=== PATIENT | male | born 2000 | race Caucasian/White ===

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

== ENCOUNTER 2021-08-03 19:57 | Emergency (ER) | payer BC, SELFPAY ==
[2021-08-03 19:58] VITALS: BP 176/101; PULSE 115; RESP 16; TEMP 35.6; O2SAT 97; BMI 20.7
--- NOTE | 2021-08-03 20:24 | ED.RN ---
patient brought back to the room at this time. Patient placed in room and stated I dont want a bill and I am leaving. Patient advised he was already transported by ems and was checked in and he would still receive a bill. Patient no longer wants to stay. Patient alert and oriented. able to walk under on free will and is not pick slipped. patient witnessed walking out the ER doors without requiring any assistance.
== END 2021-08-03 20:25 | disposition left against medical advice (07) ==
LOC: ED 20:40
PROVIDERS: PCP Pediatrics
DX: Z53.21 Procedure and treatment not carried out due to patient leaving prior to being seen by health care provider (principal)
CPT/HCPCS: 99283

== ENCOUNTER 2022-11-01 11:30 | Emergency (ER) | payer BC, SELFPAY ==
[2022-11-01 11:31] VITALS: BP 138/97; PULSE 123; RESP 17; TEMP 36.1; O2SAT 99; BMI 26.5
--- NOTE | 2022-11-01 11:39 | EKG12_ITS ---
Test Reason : GI bleed Blood Pressure : / mmHG Vent. Rate : 096 BPM Atrial Rate : 096 BPM P-R Int : 144 ms QRS Dur : 094 ms QT Int : 362 ms P-R-T Axes : 055 075 059 degrees QTc Int : 457 ms Normal sinus rhythm Normal ECG Confirmed by CESAR DE SANTIAGO, MODESTO ([id number]), design editor MARCO HUSSEIN ([id number]) on 11/06/2022 1:02:30 PM Referred By: Damien Confirmed By:MODESTO GUERRERO MD
--- NOTE | 2022-11-01 11:41 | EX.ED.DYSGE1 ---
[facility] History of Present Illness Chief Complaint: GI Bleed Narrative Narrative: Patient drinks every day he drinks hard liquor, mostly rum and/or whiskey, he has had epigastric pain over the past few days today he vomited quite a bit of blood and he has noticed that his stool was black. He feels slightly lightheaded. He has no fevers or chills. PFSH PFS Home Medications NK 05/21/20 [History Last Taken Unknown] Allergy/AdvReac Type Severity Reaction Status Date / Time No Known Allergies Allergy Verified 11/01/22 11:30 Social History Smoking Status: Never smoker ROS ROS ED ROS Narrative Past medical history: Reviewed Medications: Reviewed Social history: Noncontributory Review of systems: All systems negative except as indicated General: No fever. Slightly lightheaded Eyes: No visual changes ENT: No upper airway congestion, normal voice Neck: No neck pain Cardiovascular: No chest pain Respiratory: No shortness of breath or cough Gastrointestinal: He has some nausea some epigastric pain and then vomiting blood as in HPI, also black tarry stools. Genitourinary: No dysuria Musculoskeletal: Denies myalgias no difficulty with ambulation Skin: No rash Neurological: No memory loss, confusion or any focal weakness Psych: No recent behavioral changes Hematologic: No easy bleeding or easy bruising EXAM Physical Exam Narrative Exam Narrative: Physical exam General: Patient appears somewhat uncomfortable Head: Normocephalic, Atraumatic Eyes: Conjunctiva not pale ENT: Slightly dry mucous membranes Neck: Supple, Nontender, No lymphadenopathy Cardiovascular: Regular tachycardia Respiratory: No distress, CTA bilaterally Abdomen: Soft, slight epigastric tenderness to palpation Back: Nontender, Normal Inspection. Negative for: CVA tenderness Extremities: Nontender, No edema Skin: Normal color, No rash. No current pallor. Neurological: Alert, Normal Strength, Normal Sensation Psychological: Normal affect Const Vital Signs: 11/01/22 11:31 Temperature 96.9 F L Temperature Source Temporal Pulse Rate 123 H Respiratory Rate 17 Blood Pressure 138/97 H Blood Pressure Mean 110 Pulse Ox 99 [facility] Treatment and Re-Evaluation Narrative: Insert [facility] Patient was seen by me in the emergency department. I am worried about an upper GI bleed either from an ulcer or from esophageal varices. Patient's heart rate is 123 thus I am worried about him being unstable. I discussed the patient with surgery since we do not have GI coverage, at this time the plan is to transfer him for GI since this could be an esophageal varices. Differential diagnosis include: Upper GI bleed from either peptic ulcer or esophageal bleed Gastritis Perforation of peptic ulcer I discussed the case with the following consultants: Surgery Medical accepting doctor at outside facility The patient has the following comorbidities which impact testing and treatment: He has alcoholism which could contribute to his risks The following tests were considered: I did consider CT however I do not believe he has a perfect viscus, I believe he has either esophageal varices and or an ulcer and endoscopy is a better test. Patient was given Pepcid, Protonix Zofran and IV fluids. Patient has the following social determinants of health, and it impacts their healthcare: Alcoholism Critical Care Time Critical care time (excluding procedures): 30-74 minutes, Including time spent:, Discussing w/Patient &/or Family/Modern Dancer, Discussing w/Consultants, Arranging Admission or Transfer, Performing Direct Patient Care at Bedside and - (30 minutes. Patient has a GI bleed and he has sinus tachycardia, he has high probability of decompensating.) Discharge Plan Triage Chief Complaint: GI Bleed ED Provider: Lalo Quezada Dx/Rx/DC Orders Clinical Impression: Acute upper GI bleed, Tachycardia, Alcoholism Prescriptions: No Action NK Primary Care Provider: Care Physician,No Primary Referrals: Care Physician,No Primary [Primary Care Provider] -
[2022-11-01] MEDS: 0.9% Normal Saline 1,000 ML 1000 ML IV (11:50)
[2022-11-01] MEDS: Ondansetron 4 MG/2 ML Vial IV (11:51)
[2022-11-01 11:53] VITALS: PULSE 95; RESP 16; O2SAT 95
[2022-11-01 11:58] LABS: Basophil# 0.04 X10^3/uL; Basophil% 0.6 % (0-1); Eosinophil# 0.25 X10^3/uL; Eosinophils% 3.5 % (0-5); Hematocrit 43.9 % (40-54); Hemoglobin 14.9 g/dL (13.0-16.5); Lymphocyte % 32.3 % (19-41); Mean Corp Hgb Conc 33.9 g/dL (32-36); Mean Corpuscular Hgb 30.7 pg (27.0-32.0); Mean Corpuscular Volume 90.5 fL (80-94); Mean Platelet Vol. 8.2 fl (6.2-12.0); Monocyte# 0.51 X10^3/uL; Monocyte% 7.2 % (0-10); NRBC Flagged by Analyzer 0 % (0-5); Neutrophil # 4.01 X10^3/uL (2.7-7.7); Neutrophil % 56.1 % (47-70); Platelet Count 224 K/mm3 (150-450); RBC Distribution Width CV 12.7 % (11.6-14.6); RBC Distribution Width SD 41.7 fl (35.1-43.9); Red Blood Count 4.85 M/mm3 (4.6-6.2); White Blood Count 7.1 K/mm3 (4.4-11.0)
[2022-11-01 12:09] LABS: International Normalized Ratio 0.9; Prothrombin Time (Protime)PT. 11.6 SECONDS (11.7-14.9)
[2022-11-01 12:19] LABS: AST(SGOT) 40 U/L (15-37); Alanine Aminotransfer ALT/SGPT 40 U/L (16-61); Albumin, Serum 3.8 g/dL (3.2-5.0); Alkaline Phosphatase 100 U/L (45-117); Anion Gap 5 (5-15); BUN 9 mg/dL (7-18); BUN/Creat Ratio 9.4 RATIO (10-20); Calcium,Total 8.6 mg/dL (8.5-10.1); Chloride 107 mmol/L (98-107); Creatinine, Serum 0.96 mg/dL (0.70-1.30); EST Glomerular Filtration Rate 105 mL/min (>60); Est Glom Filt Rate - Afr Amer 127 mL/min (>60); Estimated Creatinine Clearance 125.68 ml/min; Globulin 3.9 g/dL (2.2-4.2); Glucose 109 mg/dL (74-106); Potassium 4.2 mmol/L (3.5-5.1); Protein, Total 7.7 g/dL (6.4-8.2); Sodium Level 142 mmol/L (136-145)
[2022-11-01] MEDS: Famotidine 200 MG/20 ML MDV 20 MG in 0.9% Normal Saline (Pres. free 8 ML 300 MG IV (12:28)
--- NOTE | 2022-11-01 13:10 | NURSING ---
NOELLE HENDERSON, DR YOO, VENKAT LAWRENCE
[2022-11-01 16:25] LABS: White Blood Count 6.8 K/mm3 (4.4-11.0)
[2022-11-01 16:26] LABS: Hematocrit 40.7 % (40-54); Hemoglobin 13.1 g/dL (13.0-16.5); Mean Corp Hgb Conc 32.2 g/dL (32-36); Mean Corpuscular Hgb 29.6 pg (27.0-32.0); Mean Corpuscular Volume 91.9 fL (80-94); Mean Platelet Vol. 8.7 fl (6.2-12.0); POSITIVE COUNT NO; POSITIVE DIFFERENTIAL NO; POSITIVE MORPHOLOGY NO; Platelet Count 189 K/mm3 (150-450); RBC Distribution Width CV 12.5 % (11.6-14.6); RBC Distribution Width SD 42.5 fl (35.1-43.9); Red Blood Count 4.43 M/mm3 (4.6-6.2); Scan Indicated on CBC? Y/N NO
--- NOTE | 2022-11-01 16:27 | NURSING ---
CALLED NOELLE HENDERSON. NO BED YET
--- NOTE | 2022-11-01 17:16 | NURSING ---
[facility] [id number] NURSE TO NURSE [phone]
[2022-11-01 19:14] VITALS: BP 123/63; PULSE 62; RESP 19; O2SAT 95
--- NOTE | 2022-11-01 19:46 | ED.RN ---
Report given to Shanice DEL CASTILLO.
[2022-11-01 20:35] VITALS: BP 113/60; PULSE 53; RESP 17; O2SAT 97
[2022-11-01 22:12] VITALS: BP 125/69; PULSE 65; RESP 14; O2SAT 98
== END 2022-11-01 23:20 | disposition short-term general hospital (02) ==
PROVIDERS: Emergency Provider Emergency Medicine; Visit Provider Emergency Medicine
DX: K92.2 Gastrointestinal hemorrhage, unspecified (principal); F10.20 Alcohol dependence, uncomplicated; R00.0 Tachycardia, unspecified
CPT/HCPCS: 80053; 85025; 85027; 85610; 86850; 86900; 86901; 87811; 93005; 96365; 96375; 99285; J7030; J7050; A4216; J2405; J3490